=== PATIENT | male | born 1935 | race Caucasian/White ===

== ENCOUNTER 2017-09-20 23:30 | Observation (INO) ==
[2017-09-21] MEDS ORDERED: Acetaminophen 325 MG TABLET PO PRN (05:14)
[2017-09-21] MEDS ORDERED: Naloxone 0.4 MG/ML INJ IVP PRN (05:14)
[2017-09-21] MEDS ORDERED: 0.9 % Sodium Chloride 1,000 ML IVC SCH (05:15)
[2017-09-21] MEDS ORDERED: Albuterol 2.5 MG/3 ML NEBULIZER IH PRN (05:21)
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
[2017-09-21 05:24] LABS: Hemoglobin 12.6 g/dL (12.9-16.9); Mean Corpuscular HGB Conc 33.2 g/dL (31.6-35.5); Mean Corpuscular Hemoglobin 29.4 pg (28.0-33.3); Mean Corpuscular Volume 88.8 fL (83.0-100.0); Mean Platelet Volume 10.1 fL (9.4-12.4); Platelet Count 171 K/mcL (140-400); Red Blood Count 4.28 M/mcL (4.19-5.50); Red Cell Distribution Width 14.5 % (11.5-14.5); Segmented Neutrophils % 60.2 %
[2017-09-21 05:25] LABS: Basophils # 0.1 K/mcL (0.0-0.2); Basophils % 0.8 %; Eosinophils # 0.4 K/mcL (0.0-0.6); Eosinophils % 5.4 %; Immature Granulocytes % 0.5 % (0-4); Lymphocytes # 1.3 K/mcL (0.6-4.6); Lymphocytes % 20.1 %; Monocytes # 0.8 K/mcL (0.0-1.3); Neutrophils # 3.9 K/mcL (1.6-8.9)
[2017-09-21 05:39] LABS: BUN/Creatinine Ratio 16 (6-26); Blood Urea Nitrogen 16 mg/dL (8-23); Calcium 8.9 mg/dL (8.6-10.3); Carbon Dioxide 22 mEq/L (23-29); Chloride 111 mEq/L (98-107); Glucose 87 mg/dL (70-105); Osmolality,Calculated 291 (280-300); Potassium 3.6 mEq/L (3.5-5.1); Sodium 140 mEq/L (136-145); eGFR For Non-African Americans > 60 (> 60)
[2017-09-21] MEDS: *HR* Enoxaparin 40 MG/0.4 ML SYRINGE SQ SCH (06:36)
[2017-09-21] MEDS: amLODIPine 5 MG TABLET PO SCH (10:10)
[2017-09-21] MEDS: Budesonide/Formoterol 160/4.5 MDI IH SCH ×2 (11:33→20:25)
--- NOTE | 2017-09-21 13:32 | Internal Med Progress Note ---
Hospitalist Progress Note - Encounter Date of Encounter: 09/21/17 Time of Encounter: 13:32 - Subjective Interval History: Seen and evaluated at the bedside with his spouse He is being observed for near-syncope with symptomatic bradycardia, hypotension and ADIEL The patient was on atenolol as home med, this has been held Awaiting repeat EKG, and TTE He denies any new complains ADIEL is improving - Exam Vitals: Temp Pulse Resp BP Pulse Ox 97.6 F 66 18 153/91 96 09/21/17 11:27 09/21/17 11:27 09/21/17 11:36 09/21/17 11:27 09/21/17 11:36 Exam: VSS Gen: not in any form of distress Neuro: No focal deficits HEENT: Moist oral mucosa, anicteric, not pale, no cyanosis Chest: CTAB Heart: S1, S2 only, no m/g/r, no JVD Abdomen: Soft, not tender, no palpably enlarged organs Extremities: No edema Skin: No rash - Assessment and Plan (1) Symptomatic bradycardia Current Visit: Yes Status: Acute Assessment and Plan: Resolved HR now WNL Discontinued atenolol Continue tele Await ECHO report Cardiology consulted (2) Hypotension Current Visit: Yes Status: Resolved Assessment and Plan: Resolved Possibly due to bradycardia Continue IVF for ADIEL (3) Acute kidney injury Current Visit: Yes Status: Acute Assessment and Plan: Improving Likely due to hypotension and bradycardia Continue to monitor Avoid nephrotoxins (4) HTN (hypertension) Current Visit: Yes Status: Chronic Assessment and Plan: Start on Norvasc 5mg po daily for Hypertension Discontinue atenolol (5) HLD (hyperlipidemia) Current Visit: Yes Status: Chronic Assessment and Plan: Continue home medications (6) History of CVA (cerebrovascular accident) Current Visit: Yes Status: Chronic Assessment and Plan: Continue home medications (7) COPD (chronic obstructive pulmonary disease) Current Visit: Yes Status: Chronic Assessment and Plan: Continue albuterol q4h prn (8) GERD (gastroesophageal reflux disease) Current Visit: Yes Status: Chronic Assessment and Plan: Continue home medications (9) DVT prophylaxis Current Visit: Yes Status: Acute Assessment and Plan: Sq heparin - Time Spent with Patient Total time spent is greater than 50% in coordination of care (as documented) at patient's floor/unit and/or counseling patient: Plan of Care Discussed with: patient Internal Medicine: Result - Labs CBC & Chem 7: 09/21/17 04:43 09/21/17 04:43 Labs: Short CBC 09/21/17 Range/Units 04:43 WBC 6.5 (4.3-11.1) K/mcL Hgb 12.6 L (12.9-16.9) g/dL Hct 38.0 (37.5-50.1) % Plt Count 171 (140-400) K/mcL Neutrophils # 3.9 (1.6-8.9) K/mcL BMP 09/21/17 04:43 Sodium 140 Potassium 3.6 Chloride 111 H Carbon Dioxide 22 L BUN 16 Creatinine 0.97 Glucose 87 Calcium 8.9 Consult Discharge Plan - Plan Referrals: Markell Daniel MD [Primary Care Provider] - (2) Hypotension Qualifiers: Hypotension type: unspecified hypotension type Qualified Code(s): I95.9 - Hypotension, unspecified (4) HTN (hypertension) Qualifiers: Hypertension type: essential hypertension Qualified Code(s): I10 - Essential (primary) hypertension (5) HLD (hyperlipidemia) Qualifiers: Hyperlipidemia type: mixed hyperlipidemia Qualified Code(s): E78.2 - Mixed hyperlipidemia (7) COPD (chronic obstructive pulmonary disease) Qualifiers: COPD type: unspecified COPD Qualified Code(s): J44.9 - Chronic obstructive pulmonary disease, unspecified (8) GERD (gastroesophageal reflux disease) Qualifiers: Esophagitis presence: without esophagitis Qualified Code(s): K21.9 - Gastro- esophageal reflux disease without esophagitis
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
[2017-09-22] MEDS: *HR* Enoxaparin 40 MG/0.4 ML SYRINGE SQ SCH (06:13)
[2017-09-22] MEDS: Budesonide/Formoterol 160/4.5 MDI IH SCH (07:40)
[2017-09-22] MEDS ORDERED: Aspirin Enteric Coated 81 MG Tablet PO SCH (09:00)
[2017-09-22] MEDS ORDERED: Multivit/Ca/Min/Fe/FA 1 TAB TABLET PO SCH (09:00)
[2017-09-22] MEDS ORDERED: Folic Acid 1 MG TABLET PO SCH (09:00)
[2017-09-22] MEDS: amLODIPine 5 MG TABLET PO SCH (09:35)
--- NOTE | 2017-09-22 10:34 | Discharge Summary ---
- NOTES TO OUTPATIENT PROVIDER Notes to Outpatient Provider: Patient admitted with symptomatic bradycardia and hypotension with ADIEL. Atenolol has been discontinued and patient started on Norvasc for HTN. He is discharged with Holter for 48 hrs, follow up with PCP Orders not resulted at time of discharge: Pending orders 09/21/17 05:24 EKG [ECG 12 lead ECG] [ECG] Routine 09/21/17 14:18 TSH [Thyroid Stimulating Hormone] Routine 09/21/17 17:24 ECG 48 holter monitor setup [ECG] Routine 09/22/17 09:55 BMP [Basic Metabolic Panel] Stat Thyroid Stimulating Hormone Stat Date of Encounter: 09/22/17 Time of Encounter: 10:32 - Discharge Diagnosis (1) Symptomatic bradycardia Priority: Primary Status: Resolved (2) Hypotension Priority: Primary Status: Resolved Qualifiers: Hypotension type: unspecified hypotension type Qualified Code(s): I95.9 - Hypotension, unspecified (3) Acute kidney injury Priority: Primary Status: Resolved (4) HTN (hypertension) Priority: Secondary Status: Chronic Qualifiers: Hypertension type: essential hypertension Qualified Code(s): I10 - Essential (primary) hypertension (5) HLD (hyperlipidemia) Priority: Secondary Status: Chronic Qualifiers: Hyperlipidemia type: mixed hyperlipidemia Qualified Code(s): E78.2 - Mixed hyperlipidemia (6) History of CVA (cerebrovascular accident) Priority: Secondary Status: Chronic (7) COPD (chronic obstructive pulmonary disease) Priority: Secondary Status: Chronic Qualifiers: COPD type: unspecified COPD Qualified Code(s): J44.9 - Chronic obstructive pulmonary disease, unspecified (8) GERD (gastroesophageal reflux disease) Priority: Secondary Status: Chronic Qualifiers: Esophagitis presence: without esophagitis Qualified Code(s): K21.9 - Gastro -esophageal reflux disease without esophagitis (9) DVT prophylaxis Priority: Primary Status: Resolved Hospital course: Mr. Rueda is a 81 year old male with hx of CVA, HTN, GERD who presented to outside facility with dizziness and near-syncope and was found to be bradycardic , hypotensive and with ADIEL He is on atenolol at home for HTN His symptoms resolved and signs and vitals imprved with IVF hydration and discontinuation of atenolol ECHO was unremarkable. EF is preserved TSH and Chem, as well as CBC unremarkable Cardiology was consulted for recommendation and placement of Holter, agreed with plan He is clinically and hemodynamically stable for discharge home with family Patient and family educated at the bedside with plan for care today, verbalized understanding Discharge discussed with: patient, family, nurse, case management - Time Spent with Patient Total time spent providing and/or coordinating discharge services: Greater than 30 minutes - Discharge Medications Prescriptions: amLODIPine [Norvasc] 5 mg PO DAILY #30 tablet Home Medications: Albuterol Sulfate [Albuterol Inhaler] 2 puff IH Q4HR 09/11/15 [History] Budesonide/Formoterol 160/4.5 [Symbicort 160/4.5] 1 puff IN BID 09/11/15 [ History] Multivit with Calcium,Iron,Min [Essential Daily] 1 each PO DAILY 09/11/15 [ History] Omeprazole [PriLOSEC] 20 mg PO DAILY 09/11/15 [History] Atorvastatin Calcium [Lipitor] 80 mg PO HS 07/28/17 [History] Folic Acid 1 mg PO DAILY 07/28/17 [History] Alendronate Sodium [Fosamax] 70 mg PO QWEEK 09/21/17 [History] Aspirin [Lo-Dose Aspirin EC] 81 mg PO DAILY 09/21/17 [History] amLODIPine [Norvasc] 5 mg PO DAILY #30 tablet 09/22/17 [Rx] Allergies/Adverse Reactions: 3 Allergy/AdvReac Type Severity Reaction Status Date / Time cetirizine [From Zyrtec] Allergy See Verified 07/26/17 10:33 Comments Date of admission: 09/21/17 01:20 Primary care physician: Markell Daniel MD Consults: 09/21/17 04:10 Consult for Pharmacy Education [CONS] Stat Reason for Consult: Please verify home medications. Notify MD when this is completed. Thanks. Call Completed: No 09/21/17 13:31 Consult to Cardiology [CONS] Routine Comment: Consulting Provider: Cardiology Marilee Reason for Consult: Symptomatic bradycardia, ADIEL, for possible Holter on discharge Call Completed: Yes Discharging clinician: Jeferson Soares Anticipated date of discharge: 09/22/17 - Constitutional Vitals: Temp Pulse Resp BP Pulse Ox 97.5 F L 80 16 156/96 95 09/22/17 08:25 09/22/17 08:25 08/01/18 08:25 09/22/17 08:25 09/22/17 08:25 General appearance: Present: cooperative, A&O X 3, pleasant, no acute distress, answers questions appropriately - Head Head exam: Present: atraumatic, normocephalic - Eye Eye exam: Present: PERRL, conjuntiva pink, sclera anicteric Pupils: Present: PERRL - Neck Neck exam general surgery: Present: supple, trachea midline. Absent: lymphadenopathy - Respiratory Respiratory exam: Present: CTAB. Absent: accessory muscle use, rales, rhonchi, wheezes - Cardiovascular Cardiovascular exam: Present: RRR, +S1, +S2. Absent: diastolic murmur, gallop, rubs, systolic murmur - GI/Abdominal GI/Abdominal exam: Present: normal bowel sounds, soft, no peritoneal signs. Absent: distended, tenderness - Extremities Exam Extremities exam: Present: warm, radial pulses palpable and symmetrical. Absent : calf tenderness, cyanotic, pedal edema - Neurological Exam Neurological exam: Present: CN II-XII intact, oriented X3, no focal deficits. Absent: pronater drift, facial droop, speech deficit - Skin Skin exam: Present: dry, intact - Patient Status Disposition: Home, Self-Care Condition: Good Functional capacity at discharge: independent ambulation Overall status at discharge: patient is back to baseline - Discharge Instructions Follow Up With: Markell Daniel MD [Primary Care Provider] - 09/27/17 10:30 am (Please follow up a schedule...) - Diet and Activity Activity: resume usual activities as tolerated Diet: low salt diet
--- NOTE | 2017-09-22 10:37 | Cardiology Progress Note ---
Date of Encounter: 09/22/17 Time of Encounter: 10:34 Assessment and Plan (1) Symptomatic bradycardia Current Visit: Yes Status: Resolved CBC, BMP, CXR, troponin all within normal limits. Patient has remained asymptomatic with vital signs within normal limits. Echo performed 09/21/17 showing EF of 60% with mild MR, mild TR, basal septal hypertrophy and mild LVH Overnight telemetry showed an average heart rate of 80 bpm with few PVCs and PACs, two second pauses were noted. Recommend discontinuation of the atenolol with outpatient PCP followup. Continue Norvas Have ordered 48 holter monitor for home. Cardiology has signed off at this time, please call if you have any further questions. Discussion w patient/family: The assessment and plan as outlined above was discussed with the patient and/or family members who expressed understanding and agreement. All questions were answered. Thank you for involving us in the care of your patient. Please call with any questions. Subjective Principal diagnosis: symptomatic bradycardia Interval history: Patient currently asymptomatic this morning. Patient denies lightheaded, dizziness, chest pain or shortness of breath. Patient was on telemetry overnight and denies symptoms or events. Objective Vital Signs, Last 4 Hours Temp Pulse Resp BP Pulse Ox 09/22/17 08:25 97.5 F L 80 16 156/96 95 09/22/17 07:42 16 96 General: No Apparent Distress HEENT: Atraumatic, Normocephaly Neck: No JVD, Normal carotid pulses Cardiac: Reg Rate and Rhythm, Normal S1 and S2, No Murmur Lungs: Normal Breath Sounds, No Wheeze, Rales, Rhonchi Neuro: Alert and responsive Abdomen: Soft, Non-Tender Skin: No rashes noted on visualized skin Musculoskeletal: No Chest Wall Tenderness Extremities: No Edema, Normal Pulses Results 09/21/17 04:43 09/21/17 04:43 - Imaging and Cardiology Chest Xray: report reviewed, image reviewed Echo: report reviewed, image reviewed - EKG Interpretation EKG results cardiology: personally reviewed Consult Discharge Plan - Plan Referrals: Markell Daniel MD [Primary Care Provider] - Prescriptions: amLODIPine [Norvasc] 5 mg PO DAILY #30 tablet
[2017-09-22 10:49] LABS: Thyroid Stimulating Hormone 3.476 mcIU/mL (0.340-5.600)
[2017-09-22 11:48] LABS: BUN/Creatinine Ratio 12 (6-26); Blood Urea Nitrogen 11 mg/dL (8-23); Calcium 10.3 mg/dL (8.6-10.3); Carbon Dioxide 26 mEq/L (23-29); Chloride 106 mEq/L (98-107); Glucose 125 mg/dL (70-105); Osmolality,Calculated 291 (280-300); Potassium 3.7 mEq/L (3.5-5.1); Sodium 140 mEq/L (136-145); eGFR For Non-African Americans > 60 (> 60)
[2017-09-22 12:00] VITALS: BP 158/93
--- NOTE | 2017-09-22 20:22 | Electrocardiograph Report ---
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
== END 2017-09-22 13:38 | disposition home or self-care (01) ==
LOC: 2ANU → SUATTDRO 09-21 01:20
PROVIDERS: ADMIT Family Medicine; ATTEND Internal Medicine

== ENCOUNTER 2018-02-17 18:46 | Observation (INO) ==
--- NOTE | 2018-02-17 23:00 | Internal Med History&Physical ---
Date of Encounter: 02/17/18 Time of Encounter: 22:59 Internal Medicine - H&P: HPI History of present illness: Mr. Rueda is a 82 year old male patient presents to the emergency department with upper chest pain that radiated midsternally, aggravated by exertion and got relieved with nitroglycerin paste in the ER The patient also reported that he developed blurred vision associated with lightheadedness, however he denied loss of consciousness, palpitations, numbness, tingling or weakness. The patient status post pacemaker placement in November 2017, no history of coronary artery disease or cardiac catheterization. The case was discussed with cardiology recommended admission for further evaluation and management. Past Med Surg Social Fam HX - Past Medical History Medical history: cancer, COPD, CVA, GERD, hyperlipidemia, hypertension, other Additional medical history: bladder ca. HYPERPARATHYROID Psychiatric history: no psych history - Past Surgical History Surgical History: other, pacemaker Additional surgical history: back sx 2006, bladder Sx. TURP. CARPAL TUNNEL - Social History Smoking Status: Former smoker Smokeless Tobacco Status: No Alcohol use: none Drug use: none - Family History Mother Living Status: Internal Medicine - H&P: Meds Budesonide/Formoterol 160/4.5 [Symbicort 160/4.5] 1 puff IN DAILY 09/11/15 [History] Omeprazole [PriLOSEC] 20 mg PO HS 09/11/15 [History] Atorvastatin Calcium [Lipitor] 80 mg PO HS 07/28/17 [History] Folic Acid 1 mg PO DAILY 07/28/17 [History] Alendronate Sodium [Fosamax] 70 mg PO ASHRAF 09/21/17 [History] Aspirin [Lo-Dose Aspirin EC] 81 mg PO DAILY 09/21/17 [History] amLODIPine [Norvasc] 5 mg PO DAILY #30 tablet 09/22/17 [Rx] Fluticasone Propionate [Flonase Allergy Relief] 1 spray NS DAILY 11/22/17 [History] Vitamin E 1,000 unit PO HS 11/22/17 [History] Naproxen [Naprosyn] 500 mg PO BID PRN 02/17/18 [History] Allergy/AdvReac Type Severity Reaction Status Date / Time cetirizine [From Zyrtec] Allergy See Verified 02/17/18 22:00 Comments All Systems PM: A 10-system review of systems was performed and is negative for pertinent findings except as documented above in the HPI. - Constitutional Constitutional: no chills, no fever(s), no night sweats - Cardiovascular Cardiovascular ROS IM: chest pain, no diaphoresis, no dyspnea, no lightheadedness, no palpitations, no syncope - Respiratory Respiratory: dyspnea, no cough, no wheezing, no excessive phlegm production - Gastrointestinal Gastrointestinal: no abdominal pain, no diarrhea, no hematemesis, no hematochezia, no melena, no nausea, no vomiting - Neurological Neurological ROS: dizziness, no confusion, no convulsions, no focal weakness, no numbness, no tingling, no tremor(s) - Constitutional Vitals: Temp Pulse Resp BP Pulse Ox 98.8 F 106 18 109/66 93 02/17/18 21:16 02/17/18 21:16 02/17/18 21:16 02/17/18 21:16 02/17/18 21:16 - Assessment and plan (1) Chest pain Current Visit: No Status: Acute Assessment and plan: ASSESSMENT: - Chest pain DD *CAD *Muskuloskeletal CP - myofascial strain, costochondritis *GERD *Esophageal spasm *Cocaine induced *Pericarditis - unlikely *Pneumonia - no infiltrate on CXR PLAN: - cardiac enzymes x 2 q 8 hr - EKG now and in AM - ASA - Metoprolol 12.5 mg PO BID, hold for HR lower than 55 bpm - O2 by NC to keep SpO2 greater than 92% - UA - Urine toxic screen - CBCD, BMP in AM - Fasting lipids - Morphine 2 mg IV q 2-4 hr PRN chest pain - Tylenol 650 mg PO q 4-6 hr PRN headache - Home meds (check list) - Heparin 5000 U SQ BID - 2D Echo - Cardiology consult (2) HTN (hypertension) Current Visit: No Status: Chronic Assessment and plan: We will continue home medication Qualifiers: (3) HLD (hyperlipidemia) Current Visit: No Status: Chronic Qualifiers: (4) COPD (chronic obstructive pulmonary disease) Current Visit: No Status: Chronic Assessment and plan: We will continue home medication and start the patient in DuoNeb when necessary Qualifiers: (5) GERD (gastroesophageal reflux disease) Current Visit: No Status: Chronic Assessment and plan: We will continue home medication Qualifiers: (6) S/P placement of cardiac pacemaker Current Visit: No Status: Acute Assessment and plan: Cardiology was consulted to rule out pacemaker malfunction (7) Pre-syncope Current Visit: Yes Status: Acute Assessment and plan: There is a concern of pacemaker malfunction, and possible arrhythmia, etiology was consulted, we will obtain 2-D echo. - Time Spent With Patient Total time spent is greater than 50% in coordination of care (as documented) at patient's floor/unit and/or counseling patient:
[2018-02-18] MEDS ORDERED: Acetaminophen 325 MG TABLET PO PRN (00:07)
[2018-02-18] MEDS ORDERED: Ondansetron 4 MG/2 ML VIAL IVP PRN (00:07)
[2018-02-18] MEDS ORDERED: Naloxone 0.4 MG/ML INJ IVP PRN (00:07)
[2018-02-18 00:59] LABS: Hematocrit 41.1 % (37.5-50.1); Hemoglobin 13.6 g/dL (12.9-16.9); Mean Corpuscular HGB Conc 33.1 g/dL (31.6-35.5); Mean Corpuscular Volume 87.6 fL (83.0-100.0); Mean Platelet Volume 9.8 fL (9.4-12.4); Platelet Count 192 K/mcL (140-400); Red Blood Count 4.69 M/mcL (4.19-5.50); Red Cell Distribution Width 14.3 % (11.5-14.5)
[2018-02-18 01:07] LABS: INR 1.1; Prothrombin Time 12.2 Seconds (9.4-12.1)
[2018-02-18 01:12] LABS: Alanine Aminotransferase 14 Units/L (7-52); Albumin 3.6 g/dL (3.5-5.7); Albumin/Globulin Ratio 1.6 (1.1-2.2); Alkaline Phosphatase 40 Units/L (34-104); Aspartate Amino Transferase 13 Units/L (13-39); BUN/Creatinine Ratio 19 (6-26); Bilirubin,Total 1.3 mg/dL (0.3-1.0); Blood Urea Nitrogen 21 mg/dL (8-23); Calcium 9.8 mg/dL (8.6-10.3); Carbon Dioxide 26 mEq/L (23-29); Chloride 103 mEq/L (98-107); Chol/HDL Ratio 2.9 (0-4.9); Cholesterol 137 mg/dL (< 200); Globulin 2.3 g/dL (2.4-3.5); Glucose 159 mg/dL (70-105); HDL Cholesterol 47 mg/dL (40-59); LDL Cholesterol,Calculated 82 mg/dL (0-99); Magnesium 1.8 mg/dL (1.6-2.6); Osmolality,Calculated 286 (280-300); Phosphorous 3.6 mg/dL (2.7-4.5); Potassium 4.2 mEq/L (3.5-5.1); Sodium 135 mEq/L (136-145); Total Protein 5.9 g/dL (6.4-8.9); Triglycerides 41 mg/dL (< 150); eGFR For Non-African Americans > 60 (> 60)
[2018-02-18] MEDS ORDERED: Ipratropium/Albuterol Neb 3 ML IH PRN (11:40)
--- NOTE | 2018-02-18 11:44 | Internal Med Progress Note ---
Hospitalist Progress Note - Encounter Date of Encounter: 02/18/18 Time of Encounter: 09:15 - Subjective Interval History: Patient was seen and assessed at bedside at 9:15 AM. He is alert, oriented, appropriate. He reports blurred vision with lightheadedness for several days. He says blurred vision only happens when he is lightheaded. The chest pain began yesterday and he describes it as Judy between dull and sharp, constant, increases with deep inspiration. It is not reproducible with palpation or movement. He denies fever, cough, URI symptoms, nausea, vomiting, diarrhea or abdominal pain. - Exam Vitals: Temp Pulse Resp BP Pulse Ox 98.0 F 96 18 122/66 91 02/18/18 11:29 02/18/18 11:29 02/18/18 11:29 02/18/18 11:29 02/18/18 11:29 General: Pt resting quietly on bed, no distress. Skin: pwd, no rashes, lesions, redness Neurological: Pt is alert and awake, oriented x 3, Speech is clear, PERRLA, EOMI, no nystagmus, no pronator drift. strength equal x 4 extremities HEENT: mucous mumbranes moist, no conjuctival pallor Neck: supple, no tracheal deviation, no lymphadenopathy, tenderness, no thyromegaly Heart: S1S2 heard without gallops, clicks, murmurs, no bradycardia or tachycardia, pt has no peripheral edema, pedal and radial pulses palpable bilaterally. Lungs: clear throughout without wheezing, rales, or ronchi, respirations are unlabored Abdomen: soft and non tender with bowel sound present, no hepatomegaly. Psych: Normal affect with good eye contact Exam: General: Pt resting quietly on bed, no distress. Skin: pwd, no rashes, lesions, redness Neurological: Pt is alert and awake, oriented x 3, Speech is clear, PERRLA, EOMI, no nystagmus, no pronator drift. strength equal x 4 extremities HEENT: mucous mumbranes moist, no conjuctival pallor Neck: supple, no tracheal deviation, no lymphadenopathy, tenderness, no thy romegaly Heart: S1S2 heard without gallops, clicks, murmurs, no bradycardia or tachycardia, pt has no peripheral edema, pedal and radial pulses palpable bilaterally. Lungs: clear throughout without wheezing, rales, or ronchi, respirations are unlabored Abdomen: soft and non tender with bowel sound present, no hepatomegaly. Psych: Normal affect with good eye contact - Assessment and Plan (1) HTN (hypertension) Current Visit: Yes Status: Chronic Assessment and Plan: Chronic. Well controlled. Continue home medications. (2) HLD (hyperlipidemia) Current Visit: Yes Status: Chronic Assessment and Plan: Chronic. Continue home medications. (3) COPD (chronic obstructive pulmonary disease) Current Visit: Yes Status: Chronic Assessment and Plan: Chronic, no acute exacerbation. Continue home medications, Duonebs prn, 02 as needed to maintain sats > 92%. (4) GERD (gastroesophageal reflux disease) Current Visit: Yes Status: Chronic Assessment and Plan: Chronic. Continue home dose of Prilosec. (5) S/P placement of cardiac pacemaker Current Visit: Yes Status: Acute Assessment and Plan: Pacemaker implanted in November 2017 for symptomatic bradycardia. Cardiology consulted to rule out malfunction causing pt's upper chest pain. (6) Chest pain Current Visit: Yes Status: Acute Assessment and Plan: ASSESSMENT: - Chest pain, upper chest. Unable to describe quality. States it is constant and increases with deep inspiration, not with movement or palpation. He denies nausea, vomiting, diaphoresis, shortness of breath, or radiation. Denies palpitations. He complains of dizziness over the last week or so with blurred vision. DD *CAD *Muskuloskeletal CP - myofascial strain, costochondritis *GERD *Esophageal spasm *Pericarditis - unlikely *Pneumonia - more likely based on 01/18 chest xray *Pacer malfunction. PLAN: - Troponins negative x 2. - ASA 81mg daily - Metoprolol 12.5 mg PO BID, hold for HR lower than 55 bpm - O2 by NC to keep SpO2 greater than 92% - UA - Urine toxic screen - CBCD, BMP in AM - Fasting lipids - Morphine 2 mg IV q 2-4 hr PRN chest pain - Tylenol 650 mg PO q 4-6 hr PRN headache - Home meds (check list) - Heparin 5000 U SQ BID - 2D Echo - Cardiology consult for pacer malfunction - Rocephin 1 gram IV for pneumonia (7) Pre-syncope Current Visit: Yes Status: Acute Assessment and Plan: There is a concern of pacemaker malfunction, and possible arrhythmia, cardiology was consulted, we will obtain 2-D echo. Plan as above. (8) Pneumonia Current Visit: Yes Status: Acute Assessment and Plan: Pt with chest pain, lightheadedness, near syncope for the last few days. He has mild leukocytosis and bibasilar airspace disease on CXR 01/18. His chest pain is in his upper chest, is constant discomfort with worsening with deep inspiration, likely cause of chest pain. He has been hospitalized in the last 90 days, November, for a pacemaker, so will treat for HCAP. 02 as needed to maintain sats >92% Zosyn 3.375g q8h Vancomycin 1 gram daily Duonebs as needed Strep pneumo and legionella ordered and pending. - Time Spent with Patient Total time spent is greater than 50% in coordination of care (as documented) at patient's floor/unit and/or counseling patient: less than 15 minutes Plan of Care Discussed with: patient Internal Medicine: Result - Labs CBC & Chem 7: 02/18/18 00:39 02/18/18 00:39 Labs: Short CBC 02/18/18 Range/Units 00:39 WBC 12.7 H (4.3-11.1) K/mcL Hgb 13.6 (12.9-16.9) g/dL Hct 41.1 (37.5-50.1) % Plt Count 192 (140-400) K/mcL BMP 02/18/18 00:39 Sodium 135 L Potassium 4.2 Chloride 103 Carbon Dioxide 26 BUN 21 Creatinine 1.08 Glucose 159 H Calcium 9.8 Cardiac Enzymes 02/18/18 02/18/18 Range/Units 00:39 06:02 Troponin I < 0.03 < 0.03 (< 0.04) ng/mL Liver Function 02/18/18 Range/Units 00:39 Total Bilirubin 1.3 H (0.3-1.0) mg/dL AST 13 (13-39) Units/L ALT 14 (7-52) Units/L Alkaline Phosphatase 40 (34-104) Units/L Albumin 3.6 (3.5-5.7) g/dL - ABG Interpretation ABG results: PT/INR, D-dimer PT 12.2 Seconds (9.4-12.1) H 02/18/18 00:39 Consult Discharge Plan - Plan Referrals: Markell Daniel MD [Primary Care Provider] - 02/28/18 10:30 am (1) HTN (hypertension) Qualifiers: (2) HLD (hyperlipidemia) Qualifiers: (3) COPD (chronic obstructive pulmonary disease) Qualifiers: (4) GERD (gastroesophageal reflux disease) Qualifiers: (6) Chest pain Qualifiers: Chest pain type: chest pain on breathing Qualified Code(s): R07.1 - Chest pain on breathing; R07.81 - Pleurodynia (8) Pneumonia Qualifiers: Pneumonia type: due to unspecified organism Laterality: bilateral Lung location: lower lobe of lung Qualified Code(s): J18.1 - Lobar pneumonia, unspecified organism
[2018-02-18] MEDS ORDERED: Azithromycin 500 MG in D5% in Water 250 ML IVPB SCH (12:00)
[2018-02-18] MEDS: *HR* Heparin 5,000 UNIT/ML VIAL SQ SCH ×2 (12:50→20:17)
[2018-02-18] MEDS: *HR* HYDROcodone/Acet 5/325 mg TABLET PO PRN ×2 (13:05→18:48)
[2018-02-18 13:39] LABS: Bilirubin,Urine Negative (Negative); Blood,Urine Negative (Negative); Clarity,Urine Clear (Clear); Color,Urine Yellow (Yellow); Glucose,Urine (UA) Normal (Normal); Ketones,Urine Negative (Negative); Leukocyte Esterase,Urine Small (Negative); Nitrite,Urine Negative (Negative); PH,Urine 5.5 pH Units (5.0-8.0); Protein,Urine Negative (Neg-Trace); Specific Gravity,Urine 1.023 (1.010-1.025); Urobilinogen,Urine Normal (Normal)
[2018-02-18 13:42] LABS: Bacteria,Urine None Seen per hpf (None-Few); Hyaline Casts,Urine None Seen per lpf (None-Few); RBC,Urine 0-3 per hpf (0-3); Squamous Epithelial Cell,Urine Moderate per lpf (None-Few); WBC,Urine 0-3 per hpf (0-3)
[2018-02-18] MEDS: Piperacillin/Tazobactam 3.375 GM in 0.9 % Sodium Chloride Mini Bag 100 ML IVPB SCH ×2 (16:33→23:56)
[2018-02-18] MEDS ORDERED: cefTRIAXone 1,000 MG in 0.9 % Sodium Chloride Mini Bag 100 ML IVPB SCH (18:00)
[2018-02-19 03:50] LABS: Basophils % 0.4 %; Eosinophils # 0.2 K/mcL (0.0-0.6); Eosinophils % 1.8 %; Hematocrit 36.6 % (37.5-50.1); Hemoglobin 12.3 g/dL (12.9-16.9); Immature Granulocytes % 0.3 % (0-4); Lymphocytes % 9.9 %; Mean Corpuscular HGB Conc 33.6 g/dL (31.6-35.5); Mean Corpuscular Hemoglobin 29.1 pg (28.0-33.3); Mean Corpuscular Volume 86.7 fL (83.0-100.0); Mean Platelet Volume 10.1 fL (9.4-12.4); Monocytes # 1.4 K/mcL (0.0-1.3); Monocytes % 14.4 %; Neutrophils # 7.2 K/mcL (1.6-8.9); Platelet Count 177 K/mcL (140-400); Red Blood Count 4.22 M/mcL (4.19-5.50); Red Cell Distribution Width 14.5 % (11.5-14.5); Segmented Neutrophils % 73.2 %
[2018-02-19 04:04] LABS: BUN/Creatinine Ratio 18 (6-26); Blood Urea Nitrogen 22 mg/dL (8-23); Calcium 9.7 mg/dL (8.6-10.3); Carbon Dioxide 26 mEq/L (23-29); Chloride 104 mEq/L (98-107); Chol/HDL Ratio 2.5 (0-4.9); Cholesterol 124 mg/dL (< 200); Glucose 119 mg/dL (70-105); HDL Cholesterol 50 mg/dL (40-59); LDL Cholesterol,Calculated 62 mg/dL (0-99); Osmolality,Calculated 284 (280-300); Potassium 3.8 mEq/L (3.5-5.1); Sodium 135 mEq/L (136-145); Triglycerides 62 mg/dL (< 150); eGFR For Non-African Americans 58 (> 60)
[2018-02-19] MEDS: *HR* Heparin 5,000 UNIT/ML VIAL SQ SCH (05:25)
[2018-02-19] MEDS: Piperacillin/Tazobactam 3.375 GM in 0.9 % Sodium Chloride Mini Bag 100 ML IVPB SCH ×2 (08:46→20:03)
[2018-02-19] MEDS: *HR* HYDROcodone/Acet 5/325 mg TABLET PO PRN ×2 (08:57→20:32)
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
[2018-02-19] MEDS ORDERED: Isovue-370 500 ML INFUS..BTL IV ONE (12:00)
--- NOTE | 2018-02-19 13:55 | Event Note ---
Date of Encounter: 02/19/18 Time of Encounter: 13:49 - Cardiology Event Note -Patient admitted with pneumonia. Reports some chest tightness with deep inspiration, pleuritic chest pain. TTE with LVEF preserved, no wall motion abnormalities. Troponins negative x3. NO further ischemic work op warranted. -Regarding dizziness, reports has been ongoing for months, even prior to pacemaker placement. Can not attriubute to position change. If concern for carotid stenosis causing dizziness, recommend vascular surgery/neurology consult. -Regarding pacemaker, device check completed and on chart. Normal functioning pacemaker. Patient has had episodes of a.fib/flutter RVR. Recent diagnosis of a.fib/flutter. Do not suspect this correlates with his symptoms. Patient had device check 12/2017 in [facility] without arrythmia, however still reported dizziness. ALso 2 weeks in January without a.fib/flutter and patient still reported dizziness. -Regarding a.fib/flutter. Will start BB, lopressor 25mg BID. [id number] score 6 (age 4, HTN, DM, CVA 2), recommend retirement anticoagulation. Patient denies bleeding or blood loss. Will start eliquis 5mg BID. Eliquis assistance card given to patient. -Cardiology will sign off, patient has follow up scheduled with cardiology. -Discussed and reviewed with , patient, and at bedside.
[2018-02-19] MEDS: Aspirin Enteric Coated 81 MG Tablet PO SCH (14:34)
[2018-02-19] MEDS: amLODIPine 5 MG TABLET PO SCH (14:34)
--- NOTE | 2018-02-19 15:12 | Neurology - Consult Note ---
Date of Encounter: 02/19/18 Time of Encounter: 15:08 Assessment and Plan (1) Visual changes Current Visit: Yes Status: Acute At this juncture I am not absolutely certain that the visual changes were due to a central neurologic issue. He states that the episode lasted only about 30 seconds or so and then resolved spontaneously. He denied any associated headache or other neurologic symptoms. He denied loss of consciousness. I would like to obtain an MRI scan of the brain to rule out any evidence of subtle occipital lobe infarction. Otherwise I would feel it is not likely that the right internal carotid artery stenosis with caused only visual problems without symptoms of paresthesia or weakness associated. In regard I will obtain an MRI scan of the brain. He does have a pacemaker therefore we will have to have someone present to recalibrate the pacemaker. The meantime maintaining aspirin and anticoagulation. History of Present Illness HPI: The chart was reviewed, the patient was seen and examined independently. Patient is able to provide a good history. He is a very pleasant 82-year-old g entleman who appears younger than his stated age and is seen for neurologic evaluation secondary to acute dizziness with the visual abnormalities. His persistent in his description of what he states was a 50% loss of his vision. He denies monocular or bilateral monocular visual loss. He simply describes that things appeared to be dealing and his visual field. He stated that nothing appeared to be missing from the visual field. He denies any type of hemianopsia, denies diplopia or visual field abnormalities. He denied numbness or paresthesias, denies confusion, denied headache. Denied weakness. He states that he was hospitalized for similar complaints back in December of this year. Apparently he was thought to have possibly been due to cardiac etiologies and he does have a pacemaker. He has had a recent carotid Doppler study which reveals stenosis of the proximal right ICA at 60-79%. Echocardiogram was negative. CT scan of the brain was negative. He states that the entire episode only lasted 30 seconds up to a minute. Past Med Surg Social Fam HX - Past Medical History Medical history: cancer, COPD, CVA, GERD, hyperlipidemia, hypertension, other Additional medical history: bladder ca. HYPERPARATHYROID Psychiatric history: no psych history - Past Surgical History Surgical History: other, pacemaker Additional surgical history: back sx 2006, bladder Sx. TURP. CARPAL TUNNEL - Social History Smoking Status: Former smoker Smokeless Tobacco Status: No Alcohol use: none Drug use: none - Family History Mother Living Status: Medications and Allergies Budesonide/Formoterol 160/4.5 [Symbicort 160/4.5] 1 puff IN DAILY 09/11/15 [History] Omeprazole [PriLOSEC] 20 mg PO HS 09/11/15 [History] Atorvastatin Calcium [Lipitor] 80 mg PO HS 07/28/17 [History] Folic Acid 1 mg PO DAILY 07/28/17 [History] Alendronate Sodium [Fosamax] 70 mg PO ASHRAF 09/21/17 [History] Aspirin [Lo-Dose Aspirin EC] 81 mg PO DAILY 09/21/17 [History] amLODIPine [Norvasc] 5 mg PO DAILY #30 tablet 09/22/17 [Rx] Fluticasone Propionate [Flonase Allergy Relief] 1 spray NS DAILY 11/22/17 [History] Vitamin E 1,000 unit PO HS 11/22/17 [History] Naproxen [Naprosyn] 500 mg PO BID PRN 02/17/18 [History] Allergy/AdvReac Type Severity Reaction Status Date / Time cetirizine [From Zyrte] Allergy See Verified 02/17/18 22:00 Comments All Systems: The remainder of the systems were reviewed and are negative Review of Systems: The balance of the systems review is negative. Physical Examination - Vital Signs Vital Signs: Initial Vital Signs Temp Pulse Resp BP Pulse Ox 98.8 F 106 18 109/66 93 02/17/18 21:16 02/17/18 21:16 02/17/18 21:16 02/17/18 21:16 02/17/18 21:16 - Exam Exam: General Examination: *CONSTITUTIONAL: normal *GENERAL APPEARANCE OF PATIENT appears healthy and well groomed *EYES: pupils equal, round, reactive to light and accommodation, c onjunctiva clear without masses or ulcerations, fundi normal. *CARDIOVASCULAR no peripheral edema, distal temperature normal, dorsalis pedis pulses normal. Refer to vital signs Musculoskeletal: *GAIT AND STATION normal, with normal Romberg testing, no abnormalities such as broad base gait or spasticity *ASSESSMENT OF MUSCLE STRENGTH IN THE UPPER AND LOWER EXTREMITIES deltoid, bicep, tricep, pastry decorator strength, hip flexors ,anterior tibialis, dorsoflexion of the foot normal. *MUSCLE TONE IN THE UPPER AND LOWER EXTREMITIES normal. No abnormal movements, fasciculations or atrophy identified. Neurological: *ORIENTATION to time and place *RECURRENT AND REMOTE MEMORY intact *ATTENTION AND CONCENTRATION are normal *LANGUAGE FUNCTION no significant aphasia or dysarthia was noted. *FUND OF KNOWLEDGE aware of current events, past history, vocabulary *MENTAL attention span and concentration normal. *CN II optic fundi were normal, no papilledema noted. *CN III,IV, PERRLA extraocular eye movements were full, no nystagmus and no ptosis noted. *CN V shows normal sensation and jaw opens symmetrically. *CN VII shows normal facial movement symmetrically, upper and lower bilat erally. *CN VIII shows no significant hearing loss on examination in the office. *CN IX,,X palate elevated symmetrically and normal gag reflex was noted. *CN XI normal strength in the sternocleidomastoid muscles, symmetrical shoulder shrugging. *CN XII tongue protruded in the midline, with normal strength and movement. *SENSORY EXAMINATION pinprick sensation intact, and light touch(vibration sense). *REFLEXES: deep tendon reflexes were normal and symmetrical , grade 2/4 diffusely, no pathological reflexes were noted. *CEREBELLAR TESTING normal finger to nose, heel/knee/william, and tandem walk. *PAIN LEVEL -0 Results - Laboratory Findings CBC and BMP: 02/19/18 02:59 02/19/18 02:59 Abnormal lab findings: Abnormal lab results Hgb 12.3 g/dL (12.9-16.9) L 02/19/18 02:59 Hct 36.6 % (37.5-50.1) L 02/19/18 02:59 Monocytes # 1.4 K/mcL (0.0-1.3) H 02/19/18 02:59 PT 12.2 Seconds (9.4-12.1) H 02/18/18 00:39 Sodium 135 mEq/L (136-145) L 02/19/18 02:59 Est GFR (Non-Af Amer) 58 (> 60) L 02/19/18 02:59 Glucose 119 mg/dL (70-105) H 02/19/18 02:59 Total Bilirubin 1.3 mg/dL (0.3-1.0) H 12/28/18 00:39 Serum Total Protein 5.9 g/dL (6.4-8.9) L 02/18/18 00:39 Globulin 2.3 g/dL (2.4-3.5) L 02/18/18 00:39 Ur Leukocyte Esterase Small (Negative) H 02/18/18 11:50 Ur Squamous Epith Cells Moderate per lpf (None-Few) H 02/18/18 11:50 Ur Culture Indicated? YES (NO) A 02/18/18 11:50 Consult Discharge Plan - Plan Referrals: Markell Daniel MD [Primary Care Provider] - 02/28/18 10:30 am
[2018-02-19] MEDS: Apixaban 5 MG TABLET PO SCH (20:32)
[2018-02-20] MEDS: Piperacillin/Tazobactam 3.375 GM in 0.9 % Sodium Chloride Mini Bag 100 ML IVPB SCH ×2 (01:10→09:24)
[2018-02-20] MEDS: Aspirin Enteric Coated 81 MG Tablet PO SCH (09:23)
[2018-02-20] MEDS: amLODIPine 5 MG TABLET PO SCH (09:23)
[2018-02-20] MEDS: Apixaban 5 MG TABLET PO SCH ×2 (09:23→21:21)
[2018-02-20] MEDS: *HR* HYDROcodone/Acet 5/325 mg TABLET PO PRN ×2 (09:40→17:21)
[2018-02-20 12:16] LABS: eGFR For Non-African Americans > 60 (> 60)
--- NOTE | 2018-02-20 15:32 | Internal Med Progress Note ---
Hospitalist Progress Note - Encounter Date of Encounter: 02/20/18 Time of Encounter: 15:28 - Subjective Interval History: resting comfortably in chair at side of bed, no acute change in condition overnight. He is here for evaluation of dizziness and visual abnormalities as well as concerns for syncope. He denies any return of syncopal events, dizziness, or vision changes since admission. - Exam Vitals: Temp Pulse Resp BP Pulse Ox 98.0 F 75 18 113/72 92 02/20/18 11:46 02/20/18 11:46 02/20/18 11:46 02/20/18 11:46 02/20/18 11:46 Exam: PHYSICAL EXAMINATION: GENERAL: The patient is an elderly male, A&OX3, NAD HEENT: Head is normocephalic and atraumatic.EOMI without nystagmus, PERRLA NECK: Supple. No carotid bruits. No lymphadenopathy or thyromegaly. LUNGS: Clear to auscultation B/L AP and L. HEART: Regular rate and rhythm, S1, S2 without murmurs, rubs or gallops. ABDOMEN: Soft, nontender, and nondistended. Positive bowel sounds. EXTREMITIES: Without any cyanosis, clubbing, rash, lesions or edema. NEUROLOGIC: Cranial nerves II through XII are grossly intact. Non lateralizing and non focal SKIN: No ulceration or induration present. 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 Continue home medications (4) GERD (gastroesophageal reflux disease) Current Visit: Yes Status: Chronic Assessment and Plan: continue PPI (5) S/P placement of cardiac pacemaker Current Visit: Yes Status: Acute Assessment and Plan: Chronic, history of A. fib normal functioning pacemaker per device check (6) Chest pain Current Visit: Yes Status: Resolved Assessment and Plan: pleuritic appearing chest pain; occurs with respiration dx of PNA Denies any chest pain or dyspnea at this time cardio consulted; no rec for further ischemic w/u (7) Pre-syncope Current Visit: Yes Status: Acute Assessment and Plan: States 2 episodes of pre-syncope in a 2-month period He denies any LOC or H/A and denies any loss of visual cheney. 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 EKG is without ischemic changes. Plan: MRI tomorrow to evaluate for occipital lobe infarct cardiology does not feel ischemic w/u is warranted at this time consider tilt table test outpatient if symptoms persist orthostatic vital signs to assess for autonomic dysfunction (8) Pneumonia Current Visit: Yes Status: Acute Assessment and Plan: Acute Chest x-ray is positive for a small bibasilar infiltrate there was concern for HCAP with hospitalization within the last 90 days empiric broad spectrum antibiotic coverage started on admission Apply oxygen at 2 L per nasal cannula if needed 02/20--Afebrile, and resting comfortably on RA without respiratory distress. He is non toxic appearing and hemodynamically stable. de-escalate ABX to monotherapy with Levaquin. Patient reports that he has tolerated this in the past. Renally dose. Continue nebs, - Time Spent with Patient Total time spent is greater than 50% in coordination of care (as documented) at patient's floor/unit and/or counseling patient: less than 15 minutes Plan of Care Discussed with: patient Internal Medicine: Result - Labs CBC & Chem 7: 02/19/18 02:59 02/20/18 11:27 Labs: BMP 02/20/18 11:27 Creatinine 1.11 - ABG Interpretation ABG results: PT/INR, D-dimer PT 12.2 Seconds (9.4-12.1) H 02/18/18 00:39 Consult Discharge Plan - Plan Referrals: Markell Daniel MD [Primary Care Provider] - 02/28/18 10:30 am (1) HTN (hypertension) Qualifiers: Hypertension type: essential hypertension (2) HLD (hyperlipidemia) Qualifiers: (3) COPD (chronic obstructive pulmonary disease) Qualifiers: (4) GERD (gastroesophageal reflux disease) Qualifiers: (6) Chest pain Qualifiers: Chest pain type: chest pain on breathing Qualified Code(s): R07.1 - Chest pain on breathing; R07.81 - Pleurodynia (8) Pneumonia Qualifiers: Pneumonia type: due to unspecified organism Laterality: bilateral Lung location: lower lobe of lung Qualified Code(s): J18.1 - Lobar pneumonia, unspecified organism
[2018-02-21] MEDS ORDERED: levoFLOXacin 750 MG TABLET PO SCH (09:00)
--- NOTE | 2018-02-21 09:02 | Internal Med Progress Note ---
Hospitalist Progress Note - Encounter Date of Encounter: 02/21/18 Time of Encounter: 09:00 - Subjective Interval History: No acute condition overnight. Denies and return of visual impairment or near sycopal events. - Exam Vitals: Temp Pulse Resp BP Pulse Ox 98.7 F 82 16 121/80 92 02/21/18 07:28 02/21/18 07:28 02/21/18 07:28 02/21/18 07:28 02/21/18 07:28 Exam: PHYSICAL EXAMINATION: GENERAL: The patient is an elderly male, A&OX3, NAD HEENT: Head is normocephalic and atraumatic. EOMI without nystagmus, PERRLA NECK: Supple. No carotid bruits. No lymphadenopathy or thyromegaly. LUNGS: Clear to auscultation B/L AP and L. HEART: Regular rate and rhythm, S1, S2 without murmurs, rubs or gallops. ABDOMEN: Soft, nontender, and nondistended. NABS EXTREMITIES: Without any cyanosis, clubbing, rash, lesions or edema. NEUROLOGIC: Cranial nerves II through XII are grossly intact. Non lateralizing and non focal SKIN: No ulceration or induration present. 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 Lungs clear/diminished Continue home medications (4) GERD (gastroesophageal reflux disease) Current Visit: Yes Status: Chronic Assessment and Plan: continue PPI (5) S/P placement of cardiac pacemaker Current Visit: Yes Status: Acute Assessment and Plan: Chronic, history of A. fib normal functioning pacemaker per device check (6) Chest pain Current Visit: Yes Status: Resolved Assessment and Plan: pleuritic appearing chest pain; occurs with respiration dx of PNA Denies any chest pain or dyspnea at this time cardio consulted; no rec for further ischemic w/u (7) Pre-syncope Current Visit: Yes Status: Acute Assessment and Plan: States 2 episodes of pre-syncope in a 2-month period He denies any LOC or H/A and denies any loss of visual cheney. These events are self limiting and transient resulting in approximately 30 second intervals of darkening of vision Etiology unclear at this time CT head negative orthostatic vital signs reveal orthostasis known h/o proximal rt ICA stenosis at 60-79%; however, I doubt this to be contributing to his visual disturbances and his exam is non lateralizing and non focal Neurology seeing in consultation; recommendation appreciated; rec for MRI brain to t/u occipital lobe infarction Events including near syncope and vision changes are likely not cardiac in origin pacermaker device check is negative for arrhythmic events TTE shows no wall motion abnormalities or valvular dysfunction, preserved EF. EKG is without ischemic changes. Plan: MRI to evaluate for occipital lobe infarct D/W cardiology regarding pacer recalibration for MRI of brain cardiology does not feel ischemic w/u is warranted at this time and have signed off consider tilt table test outpatient if symptoms persist (8) Pneumonia Current Visit: Yes Status: Acute Assessment and Plan: Acute Chest x-ray is positive for a small bibasilar infiltrate there was concern for HCAP with hospitalization within the last 90 days empiric broad spectrum antibiotic coverage started on admission Apply oxygen at 2 L per nasal cannula if needed 02/21--He is having persistent dyspnea with exertion in the setting of PNA otherwise he is resting comfortably on room air. Continue with Levaquin. He informed me this morning that he has been having increase dyspnea with exertion for many months prior to this admission. He does have ground glass nodules in the LLL and scattered nodules in LLL on 12/2016 imaging. He is also reporting recent night sweats. Given his hx and recent PNA admission I will order CT chest for further evaluation of pulmonary nodules. - Time Spent with Patient Total time spent is greater than 50% in coordination of care (as documented) at patient's floor/unit and/or counseling patient: less than 15 minutes Plan of Care Discussed with: patient Internal Medicine: Result - Labs CBC & Chem 7: 02/19/18 02:59 02/20/18 11:27 Labs: BMP 02/20/18 11:27 Creatinine 1.11 - ABG Interpretation ABG results: PT/INR, D-dimer PT 12.2 Seconds (9.4-12.1) H 02/18/18 00:39 Consult Discharge Plan - Plan Referrals: Markell Daniel MD [Primary Care Provider] - 02/28/18 10:30 am ___ (1) HTN (hypertension) Qualifiers: Hypertension type: essential hypertension (2) HLD (hyperlipidemia) Qualifiers: (3) COPD (chronic obstructive pulmonary disease) Qualifiers: (4) GERD (gastroesophageal reflux disease) Qualifiers: (6) Chest pain Qualifiers: Chest pain type: chest pain on breathing Qualified Code(s): R07.1 - Chest pain on breathing; R07.81 - Pleurodynia (8) Pneumonia Qualifiers: Pneumonia type: due to unspecified organism Laterality: bilateral Lung location: lower lobe of lung Qualified Code(s): J18.1 - Lobar pneumonia, unspecified organism
[2018-02-21] MEDS: Aspirin Enteric Coated 81 MG Tablet PO SCH (09:11)
[2018-02-21] MEDS: Apixaban 5 MG TABLET PO SCH (09:11)
[2018-02-21] MEDS: *HR* HYDROcodone/Acet 5/325 mg TABLET PO PRN (09:11)
[2018-02-21] MEDS: amLODIPine 5 MG TABLET PO SCH (09:11)
[2018-02-21 10:47] VITALS: BP 132/79
--- NOTE | 2018-02-21 14:01 | Discharge Summary ---
- NOTES TO OUTPATIENT PROVIDER Notes to Outpatient Provider: needs f/u MRI for evaluation of transient vision changes; MRI recommended by neurology. MRI set-up need approval by charity fundraiser Dr. Thiago Oconnor d/t pacemeker. MRI ordered; d/w with MRI department who states that they will set-up cardiology and [employer] for calibration prior to admin,. Please ensure f/u with neurology; web request appointment made Date of Encounter: 02/21/18 Time of Encounter: 13:56 - Discharge Diagnosis (1) HTN (hypertension) Priority: Secondary Status: Chronic Qualifiers: Hypertension type: essential hypertension Qualified Code(s): I10 - Essential (primary) hypertension (2) HLD (hyperlipidemia) Priority: Secondary Status: Chronic Qualifiers: Hyperlipidemia type: unspecified Qualified Code(s): E78.5 - Hyperlipidemia, unspecified (3) COPD (chronic obstructive pulmonary disease) Priority: Secondary Status: Chronic Qualifiers: COPD type: unspecified COPD Qualified Code(s): J44.9 - Chronic obstructive pulmonary disease, unspecified (4) GERD (gastroesophageal reflux disease) Priority: Secondary Status: Chronic Qualifiers: Esophagitis presence: without esophagitis Qualified Code(s): K21.9 - Gastro-esophageal reflux disease without esophagitis (5) S/P placement of cardiac pacemaker Priority: Secondary Status: Acute (6) Chest pain Priority: Primary Status: Resolved Qualifiers: Chest pain type: chest pain on breathing Qualified Code(s): R07.1 - Chest pain on breathing; R07.81 - Pleurodynia (7) Pre-syncope Priority: Primary Status: Resolved (8) Pneumonia Priority: Primary Status: Acute Qualifiers: Pneumonia type: due to unspecified organism Laterality: bilateral Lung location: lower lobe of lung Qualified Code(s): J18.1 - Lobar pneumonia, unspecified organism Hospital course: Mr. Rueda is a 82 year old male who presented with near syncope (no LOC), lightheadedness and vision changes. Syncope workup completed finding no cardiac cause with normal TTE, negative troponins and EKG without ischemic changes. CT head was negative for acute intracranial abnormality. Neurology consulted and does not feel that vision changes are not of central neurological etiology. MRI brain ordered to r/o subtle occipital lobe infarction. However, unable to complete MRI d/t pacemaker; patient needs Dr. Thiago Oconnor to recalibrate pacer prior to MRI. Dr. Oconnor unavailable to assist with pacer recalibration for MRI. This will not likely change treatment plan so the patient was discharged on eliquis, statin, ASA and instructed to f/u with PCP in 1-week and neurology in 2 weeks. He has been given an order for outpatient MRI; I discussed with MRI staff and they reported that as long as the order is in they are aware of the need to have Dr. Oconnor available to assist with recalibration. He has had no return of vision changes or near syncope during stay and was able to change position and ambulate throughout room and unit on day of d/c. Discharge discussed with: patient, nurse - Time Spent with Patient Total time spent providing and/or coordinating discharge services: Less than 30 minutes - Discharge Medications Prescriptions: Apixaban [Eliquis] 5 mg PO BID 30 Days #60 tablet levoFLOXacin [Levaquin] 750 mg PO DAILY 5 Days #5 tablet Metoprolol [Lopressor] 25 mg PO BID 30 Days #60 tablet Home Medications: Budesonide/Formoterol 160/4.5 [Symbicort 160/4.5] 1 puff IN DAILY 09/11/15 [History] Omeprazole [PriLOSEC] 20 mg PO HS 09/11/15 [History] Atorvastatin Calcium [Lipitor] 80 mg PO HS 07/28/17 [History] Folic Acid 1 mg PO DAILY 07/28/17 [History] Alendronate Sodium [Fosamax] 70 mg PO ASHRAF 09/21/17 [History] Aspirin [Lo-Dose Aspirin EC] 81 mg PO DAILY 09/21/17 [History] amLODIPine [Norvasc] 5 mg PO DAILY #30 tablet 09/22/17 [Rx] Fluticasone Propionate [Flonase Allergy Relief] 1 spray NS DAILY 11/22/17 [History] Vitamin E 1,000 unit PO HS 11/22/17 [History] Naproxen [Naprosyn] 500 mg PO BID PRN 02/17/18 [History] Apixaban [Eliquis] 5 mg PO BID 30 Days #60 tablet 02/21/18 [Rx] Metoprolol [Lopressor] 25 mg PO BID 30 Days #60 tablet 02/21/18 [Rx] levoFLOXacin [Levaquin] 750 mg PO DAILY 5 Days #5 tablet 02/21/18 [Rx] Allergies/Adverse Reactions: Allergy/AdvReac Type Severity Reaction Status Date / Time [facility] Allergy See Verified 02/17/18 22:00 Comments Date of admission: 02/17/18 21:11 Primary care physician: Markell Daniel MD Consults: 02/19/18 11:58 Consult to Cardiology [CONS] Routine Comment: Consulting Provider: [facility] Reason for Consult: HTN, pacer, dizzness, 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 Call Completed: No 02/19/18 11:59 Consult to Neurology [CONS] Routine Consulting Provider: [facility] Reason for Consult: dizziness, blurred vision , passing out Call Completed: No Discharging clinician: Wernre Flynn Anticipated date of discharge: 02/21/18 - Constitutional Vitals: Temp Pulse Resp BP Pulse Ox 98.3 F 82 18 132/79 90 02/21/18 10:45 02/21/18 10:45 02/21/18 10:45 02/21/18 10:45 02/21/18 10:45 General appearance: Present: A&O X 3 Exam: PHYSICAL EXAMINATION: GENERAL: The patient is an elderly male, A&OX3, NAD HEENT: Head is normocephalic and atraumatic. EOMI without nystagmus, PERRLA NECK: Supple. No carotid bruits. No lymphadenopathy or thyromegaly. LUNGS: Clear to auscultation B/L AP and L. HEART: Regular rate and rhythm, S1, S2 without murmurs, rubs or gallops. ABDOMEN: Soft, nontender, and nondistended. NABS EXTREMITIES: Without any cyanosis, clubbing, rash, lesions or edema. NEUROLOGIC: Cranial nerves II through XII are grossly intact. Non lateralizing and non focal SKIN: No ulceration or induration present. - Patient Status Disposition: Home, Self-Care Condition: Good Functional capacity at discharge: independent ambulation Overall status at discharge: patient is back to baseline - Ambulatory Orders Ambulatory Orders: MR head/brain wo con [MR] Time Frame: 7 Days, Facility: [facility], Location: MRI - Discharge Instructions Instructions: Chest Pain (DC), Chronic Hypertension (DC), Pneumonia (DC) Follow Up With: Riaz Neal DO [Partnered Physician] - (Appointment has been requested. Our offices will contact you with a time and date.) Markell Daniel MD [Primary Care Provider] - 02/28/18 10:30 am - Diet and Activity Activity: increase activity as tolerated, resume usual activities as tolerated Diet: diabetic diet, low fat, low cholesterol, low salt diet
[2018-02-21] MEDS ORDERED: Aminoglycoside Consult 1 EACH MC ONE (15:12)
== END 2018-02-21 15:13 | disposition home or self-care (01) ==
LOC: 3BNU
PROVIDERS: ADMIT Hospitalist; ATTEND Hospitalist

== ENCOUNTER 2018-03-28 14:43 | Observation (INO) ==
[2018-03-28] MEDS ORDERED: Naloxone 0.4 MG/ML INJ IVP PRN (20:09)
[2018-03-28] MEDS: Budesonide/Formoterol 160/4.5 1 PUFF INH IH SCH (20:52)
[2018-03-28] MEDS: Apixaban 5 MG TABLET PO SCH (21:59)
--- NOTE | 2018-03-29 00:18 | Internal Med History&Physical ---
Date of Encounter: 03/28/18 Time of Encounter: 19:00 Internal Medicine - H&P: HPI Chief complaint: CHEST PAIN/DIFFICULTY BREATHING Admitted From: Home Plans for Post Hospital Care: Home History of present illness: The patient is an 82-year-old male. It was in January 2018 when he was hospitalized here for treatment of pneumonia; discovered to have atrial fibrillation at that time. He was sent home on Eliquis, Lopressor and Norvasc. Lopressor and Norvasc were changed to Cardizem CD at 120 mg daily by a wanigan clerk at the time of the follow-up visit. Shortly after the patient started developing progressing dyspnea on exertion; associated with mild/moderate pain located in upper portion of his anterior chest. Eventually those symptoms became at resting. He could not sleep last night; was very short of breath today morning. With mild chest pain (as mentioned above). The patient has not had any fever or chills recently. Denies abdominal pain, nausea and vomiting. He has normal urination. The patient was found to have atrial fibrillation with ventricular rate of 129 in our ED. He was put on IV Cardizem drip. He felt good today evening, when I examined him. PAST MEDICAL HX: He has had atrial fibrillation. His other medical problems include COPD, hypertension, hyperlipidemia and GERD. He got two treatments for his bladder cancer in the past. 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 PAST FAMILY HX: Positive for hypertension. PAST SOCIAL HX: Is a former smoker. He denies alcohol and illicit drugs use. REVIEW OF SYSTEMS: All 14 organ systems were reviewed by me with the patient. Positive and pertinent negative findings are listed above. The rest of organ systems is negative. PHYSICAL EXAM: Skin: Free of rash and discoloration. Eyes: Sclera is white. There is no discharge from eyes. ENMT: Oral/pharyngeal mucosa is normal in appearance. There is no discharge from nose or ears. Respiratory: Normal breath sounds with no crackles and wheezes bilaterally. CV: His heart is irregularly irregular. I cannot hear any murmur. GI: Abdomen is flat and soft with no palpable mass or visceromegaly. : There is no tenderness in patient's flanks bilaterally. Neuro exam: He has good strength in upper and lower extremities. He has normal eye movements. Psychiatric: He has normal affect. His thought process is appropriate to the situation. ADDITIONAL DATA: Chest x-ray shows small bilateral pleural effusions; left side greater than right side. With associated bibasilar atelectasis. Echocardiogram from January 2018 showed ejection fraction of 60-65%. It showed mild left ventricular diastolic dysfunction. His last TSH was checked in September 2017 it was normal. Pro time INR is 2.3; secondary to use of Eliquis. CBC shows hemoglobin of 10.5 with normal WBC/platelet count. Electrolytes are showing potassium of 3.4. Otherwise, they are normal. Creatinine 0.95. Calcium is 9.5. Troponin is below 0.03. A/P: Atrial fibrillation with rapid ventricular rate. Currently under control. His IV Cardizem drip is at 10 mg/h at this time. I will check his second troponin now. He will have another one tomorrow morning. The patient will need stress test, when medically stable. It was supposed to be done last weekthe patient was not able to do it. We will continue Eliquis. COPD. Mild. To continue when necessary albuterol inhalations. Hypertension. Under control. Currently on IV Cardizem drip. Hyperlipidemia. Continue Crestor. GERD. He is on omeprazole. Past Med Surg Social Fam HX - Past Medical History Medical history: cancer, COPD, CVA, GERD, hyperlipidemia, hypertension, other Additional medical history: bladder ca. HYPERPARATHYROID Psychiatric history: no psych history - Past Surgical History Surgical History: other, pacemaker Additional surgical history: back sx 2006, bladder Sx. TURP. CARPAL TUNNEL - Social History Smoking Status: Former smoker Smokeless Tobacco Status: No Alcohol use: none Drug use: none - Family History Mother Living Status: Internal Medicine - H&P: Meds Budesonide/Formoterol 160/4.5 [Symbicort 160/4.5] 2 puff IH BID 09/11/15 [History] Omeprazole [PriLOSEC] 20 mg PO DAILY@0730 09/11/15 [History] Atorvastatin Calcium [Lipitor] 80 mg PO HS 07/28/17 [History] Folic Acid 1 mg PO DAILY 07/28/17 [History] Alendronate Sodium [Fosamax] 70 mg PO ASHRAF 09/21/17 [History] Aspirin [Lo-Dose Aspirin EC] 81 mg PO DAILY 09/21/17 [History] amLODIPine [Norvasc] 5 mg PO DAILY #30 tablet 09/22/17 [Rx] Fluticasone Propionate [Flonase Allergy Relief] 1 spray NS DAILY 11/22/17 [History] Apixaban [Eliquis] 5 mg PO BID 30 Days #60 tablet 02/21/18 [Rx] Acetaminophen [Tylenol] 500 - 1,000 mg PO Q6HR PRN 03/28/18 [History] Albuterol Sulfate [Albuterol Inhaler] 2 puff IH Q6H PRN 03/28/18 [History] Metoprolol [Lopressor] 25 mg PO BID 03/28/18 [History] Mv-Min/FA/Vit K/Lycop/Lut/Zeax [Ocuvite Eye + Multi Tablet] 1 each PO DAILY 03/28/18 [History] Allergy/AdvReac Type Severity Reaction Status Date / Time cetirizine [From Zyrtec] Allergy See Verified 03/28/18 13:08 Comments All Systems PM: A 10-system review of systems was performed and is negative for pertinent findings except as documented above in the HPI. - Constitutional Vitals: Temp Pulse Resp BP Pulse Ox 98.4 F 94 17 102/60 90 03/28/18 23:55 03/28/18 23:55 03/28/18 23:55 03/28/18 23:55 03/28/18 23:55 Exam: xx Internal Med - H&P Results - Labs Labs: Cardiac Enzymes 03/28/18 Range/Units 20:48 Troponin I < 0.03 (< 0.04) ng/mL - Assessment and plan (1) Atrial fibrillation with RVR Current Visit: Yes Status: Acute (2) Chest pain Current Visit: No Status: Acute Qualifiers: Chest pain type: other chest pain Qualified Code(s): R07.89 - Other chest pain; R07.8 - Other chest pain (3) COPD (chronic obstructive pulmonary disease) Current Visit: Yes Status: Chronic Qualifiers: COPD type: unspecified COPD Qualified Code(s): J44.9 - Chronic obstructive pulmonary disease, unspecified (4) HTN (hypertension) Current Visit: Yes Status: Chronic Qualifiers: Hypertension type: essential hypertension Qualified Code(s): I10 - Essential (primary) hypertension (5) HLD (hyperlipidemia) Current Visit: Yes Status: Chronic Qualifiers: Hyperlipidemia type: unspecified Qualified Code(s): E78.5 - Hyperlipidemia, unspecified (6) GERD (gastroesophageal reflux disease) Current Visit: Yes Status: Chronic Qualifiers: Esophagitis presence: esophagitis presence not specified Qualified Code(s): K21.9 - Gastro-esophageal reflux disease without esophagitis - Time Spent With Patient Total time spent is greater than 50% in coordination of care (as documented) at patient's floor/unit and/or counseling patient: 25 - 35 minutes
[2018-03-29 06:21] LABS: Basophils % 0.3 %; Eosinophils % 0.5 %; Hematocrit 30.9 % (37.5-50.1); Hemoglobin 10.1 g/dL (12.9-16.9); Immature Granulocytes % 0.6 % (0-4); Lymphocytes # 0.6 K/mcL (0.6-4.6); Lymphocytes % 7.3 %; Mean Corpuscular HGB Conc 32.7 g/dL (31.6-35.5); Mean Corpuscular Hemoglobin 27.5 pg (28.0-33.3); Mean Corpuscular Volume 84.2 fL (83.0-100.0); Mean Platelet Volume 9.4 fL (9.4-12.4); Monocytes % 11.5 %; Neutrophils # 7.1 K/mcL (1.6-8.9); Platelet Count 319 K/mcL (140-400); Red Blood Count 3.67 M/mcL (4.19-5.50); Red Cell Distribution Width 14.5 % (11.5-14.5); Segmented Neutrophils % 79.8 %
[2018-03-29 06:37] LABS: Troponin I < 0.03 ng/mL (< 0.04)
[2018-03-29 06:39] LABS: Alanine Aminotransferase 98 Units/L (7-52); Albumin 2.8 g/dL (3.5-5.7); Albumin/Globulin Ratio 0.9 (1.1-2.2); Alkaline Phosphatase 71 Units/L (34-104); Aspartate Amino Transferase 62 Units/L (13-39); BUN/Creatinine Ratio 15 (6-26); Bilirubin,Direct 0.4 mg/dL (0.0-0.2); Bilirubin,Indirect 0.9 mg/dL (0.0-1.2); Bilirubin,Total 1.3 mg/dL (0.3-1.0); Blood Urea Nitrogen 13 mg/dL (8-23); Calcium 9.4 mg/dL (8.6-10.3); Carbon Dioxide 26 mEq/L (23-29); Chloride 100 mEq/L (98-107); Glucose 142 mg/dL (70-105); Osmolality,Calculated 281 (280-300); Potassium 3.4 mEq/L (3.5-5.1); Sodium 134 mEq/L (136-145); Total Protein 5.8 g/dL (6.4-8.9); eGFR For Non-African Americans > 60 (> 60)
[2018-03-29] MEDS: Aspirin Enteric Coated 81 MG Tablet PO SCH (07:30)
[2018-03-29] MEDS: Folic Acid 1 MG TABLET PO SCH (07:30)
[2018-03-29] MEDS: Apixaban 5 MG TABLET PO SCH ×2 (07:30→20:13)
[2018-03-29] MEDS: Fluticasone Propionate Nasal 50 MCG/SPRAY BOTTLE NS SCH (09:53)
[2018-03-29] MEDS: Budesonide/Formoterol 160/4.5 1 PUFF INH IH SCH ×2 (10:01→19:56)
[2018-03-29] MEDS: Diltiazem CD (24hr) 240 MG CAPSULE PO SCH (13:34)
--- NOTE | 2018-03-29 23:54 | Electrocardiograph Report ---
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
--- NOTE | 2018-03-30 02:36 | Internal Med Progress Note ---
Hospitalist Progress Note - Encounter Date of Encounter: 03/29/18 Time of Encounter: 19:00 - Subjective Interval History: SUBJECTIVE: The patient feels good. He has not had any chest pain since admitting him to the hospital floor. Denies any dyspnea, coughing and wheezing. Denies abdominal pain, nausea and vomiting. He has normal urination. OBJECTIVE: Skin: Free of rash and discoloration. ENMT: Oral/pharyngeal mucosa is normal in appearance. Eyes: Sclera is white. There is no discharge from eyes. Respiratory: Normal breath sounds; no crackles or wheezes. CV: Heart is irregularly irregular with no audible murmur. GI: Abdomen is soft and not tender. There is no palpable mass or visceromegaly. Neuro: There is no focal deficits. ADDITIONAL DATA: CBC shows hemoglobin of 10.1 with normal WBC/platelet count. Potassium is 3.4. The rest of electrolytes is normal. Creatinine is 0.86. Fasting glucose by BMP is 142. His troponin is normal on 2 occasions. EKG shows atrial fibrillation. ASSESSMENT AND PLAN: Atrial fibrillation with rapid ventricular rate. Better after putting him on IV Cardizem drip. Currently at 10 mg/h. His heart rate is about 105. xxx. I will switch him to oral Cardizem CD. To continue Eliquis. I will consult cardiology. Chest pain. Subsided after getting his heart rate under better control. Negative for troponins. The patient needs stress test. It was supposed to happen this week. COPD. Under control. He is good on room air. He will get when necessary nebulizer treatments with albuterol. Hypertension. Cardizem CD 240 mg daily will very likely control at that problem. Hyperlipidemia. He is on Lipitor. - Exam Vitals: Temp Pulse Resp BP Pulse Ox 99.1 F 100 15 117/69 90 03/30/18 00:08 03/30/18 00:08 03/30/18 00:08 03/30/18 00:08 03/30/18 00:08 Exam: xx - Assessment and Plan (1) Atrial fibrillation with RVR Current Visit: Yes Status: Acute (2) Chest pain Current Visit: No Status: Acute (3) COPD (chronic obstructive pulmonary disease) Current Visit: Yes Status: Chronic (4) HTN (hypertension) Current Visit: Yes Status: Chronic (5) HLD (hyperlipidemia) Current Visit: Yes Status: Chronic (6) GERD (gastroesophageal reflux disease) Current Visit: Yes Status: Chronic - Time Spent with Patient Total time spent is greater than 50% in coordination of care (as documented) at patient's floor/unit and/or counseling patient: 25 - 35 minutes Plan of Care Discussed with: patient Internal Medicine: Result - Labs CBC & Chem 7: 03/29/18 05:18 03/29/18 05:18 Labs: Short CBC 03/29/18 Range/Units 05:18 WBC 8.8 (4.3-11.1) K/mcL Hgb 10.1 L (12.9-16.9) g/dL Hct 30.9 L (37.5-50.1) % Plt Count 319 (140-400) K/mcL Neutrophils # 7.1 (1.6-8.9) K/mcL BMP 03/29/18 05:18 Sodium 134 L Potassium 3.4 L Chloride 100 Carbon Dioxide 26 BUN 13 Creatinine 0.86 Glucose 142 H Calcium 9.4 Cardiac Enzymes 03/29/18 Range/Units 05:18 Troponin I < 0.03 (< 0.04) ng/mL Liver Function 03/29/18 Range/Units 05:18 Total Bilirubin 1.3 H (0.3-1.0) mg/dL Direct Bilirubin 0.4 H (0.0-0.2) mg/dL AST 62 H (13-39) Units/L ALT 98 H (7-52) Units/L Alkaline Phosphatase 71 (34-104) Units/L Albumin 2.8 L (3.5-5.7) g/dL Consult Discharge Plan - Plan Referrals: NONE,PCP [Primary Care Provider] - (2) Chest pain Qualifiers: Chest pain type: other chest pain Qualified Code(s): R07.89 - Other chest p ain; R07.8 - Other chest pain (3) COPD (chronic obstructive pulmonary disease) Qualifiers: COPD type: unspecified COPD Qualified Code(s): J44.9 - Chronic obstructive pulmonary disease, unspecified (4) HTN (hypertension) Qualifiers: Hypertension type: essential hypertension Qualified Code(s): I10 - Essential (primary) hypertension (5) HLD (hyperlipidemia) Qualifiers: Hyperlipidemia type: unspecified Qualified Code(s): E78.5 - Hyperlipidemia, unspecified (6) GERD (gastroesophageal reflux disease) Qualifiers: Esophagitis presence: esophagitis presence not specified Qualified Code(s): K21.9 - Gastro-esophageal reflux disease without esophagitis
[2018-03-30] MEDS: Apixaban 5 MG TABLET PO SCH ×2 (07:33→19:32)
[2018-03-30] MEDS: Folic Acid 1 MG TABLET PO SCH (07:33)
[2018-03-30] MEDS: Aspirin Enteric Coated 81 MG Tablet PO SCH (07:33)
[2018-03-30] MEDS: Diltiazem CD (24hr) 240 MG CAPSULE PO SCH (07:33)
[2018-03-30] MEDS: Budesonide/Formoterol 160/4.5 1 PUFF INH IH SCH ×2 (08:00→20:05)
[2018-03-30] MEDS: Fluticasone Propionate Nasal 50 MCG/SPRAY BOTTLE NS SCH (12:01)
[2018-03-30] MEDS: traMADol 50 MG TABLET PO PRN ×2 (15:05→23:37)
--- NOTE | 2018-03-30 15:44 | Internal Med Progress Note ---
Hospitalist Progress Note - Encounter Date of Encounter: 03/30/18 Time of Encounter: 10:25 - Subjective Interval History: Patient sitting up in chair. Complains of chest pain located centrally. Feels like a pressure. He reports that the pain has been going on for more than a month now. It had improved when he was on IV Cardizem drip but restarted after the Cardizem drip was stopped. Patient has been set up for outpatient stress test. He denies any cough or shortness of breath. No palpitations. - Exam Vitals: Temp Pulse Resp BP Pulse Ox 99.6 F 83 18 154/78 92 03/30/18 15:14 03/30/18 15:14 03/30/18 15:14 03/30/18 15:14 03/30/18 15:14 Exam: General: Patient is alert, no acute distress, oriented x 3 ENT: Mucous membranes moist Respiratory: Prolonged expiratory phase. Mild wheezing Cardiovascular: Regular rate and rhythm. s1 and s2 normal No clicks, rubs, gallops, or murmurs. No pedal edema Abdomen: Abdomen is soft, nontender. Bowel sounds are present Musculoskeletal: Spontaneously moving all extremities Skin: warm, dry, intact. Neuro: Alert oriented x 3 normal cranial nerves, no focal deficits - Assessment and Plan (1) Atrial fibrillation with RVR Current Visit: Yes Status: Acute Assessment and Plan: Rate controlled. Continue Cardizem (2) Chest pain Current Visit: Yes Status: Acute Assessment and Plan: Patient reporting continued chest pain. Initially this was believed to be due to his A. fib. However his heart rate has been controlled and patient is now on oral Cardizem. Continues to have chest pain. Troponins have been negative. Will set up for cardiac stress test tomorrow. Consult cardiology stress test is positive. (3) HTN (hypertension) Current Visit: Yes Status: Chronic Assessment and Plan: Blood pressure was well controlled this morning. We will continue to monitor and adjust antihypertensive regimen accordingly. (4) HLD (hyperlipidemia) Current Visit: Yes Status: Chronic Assessment and Plan: Continue Lipitor (5) COPD (chronic obstructive pulmonary disease) Current Visit: Yes Status: Chronic Assessment and Plan: Continue albuterol inhaler. Not in acute exacerbation (6) GERD (gastroesophageal reflux disease) Current Visit: Yes Status: Chronic Assessment and Plan: Continue Prilosec - Time Spent with Patient Total time spent is greater than 50% in coordination of care (as documented) at patient's floor/unit and/or counseling patient: Internal Medicine: Result - Labs CBC & Chem 7: 03/29/18 05:18 03/29/18 05:18 Consult Discharge Plan - Plan Referrals: NONE,PCP [Primary Care Provider] - (2) Chest pain Qualifiers: Chest pain type: other chest pain Qualified Code(s): R07.89 - Other chest pain; R07.8 - Other chest pain (3) HTN (hypertension) Qualifiers: Hypertension type: essential hypertension Qualified Code(s): I10 - Essential (primary) hypertension (4) HLD (hyperlipidemia) Qualifiers: Hyperlipidemia type: unspecified Qualified Code(s): E78.5 - Hyperlipidemia, unspecified (5) COPD (chronic obstructive pulmonary disease) Qualifiers: COPD type: unspecified COPD Qualified Code(s): J44.9 - Chronic obstructive pulmonary disease, unspecified (6) GERD (gastroesophageal reflux disease) Qualifiers: Esophagitis presence: esophagitis presence not specified Qualified Code(s): K21.9 - Gastro-esophageal reflux disease without esophagitis
[2018-03-31] MEDS ORDERED: Regadenoson 0.4 MG/5 ML SYRINGE IVP ONE (06:00)
[2018-03-31] MEDS: traMADol 50 MG TABLET PO PRN ×2 (06:49→15:26)
[2018-03-31] MEDS: Diltiazem CD (24hr) 240 MG CAPSULE PO SCH (07:43)
[2018-03-31] MEDS: Budesonide/Formoterol 160/4.5 1 PUFF INH IH SCH (11:39)
[2018-03-31 12:39] VITALS: BP 129/78
[2018-03-31] MEDS: Folic Acid 1 MG TABLET PO SCH (12:57)
[2018-03-31] MEDS: Aspirin Enteric Coated 81 MG Tablet PO SCH (12:57)
[2018-03-31] MEDS: Apixaban 5 MG TABLET PO SCH (12:57)
[2018-03-31] MEDS: Fluticasone Propionate Nasal 50 MCG/SPRAY BOTTLE NS SCH (12:58)
--- NOTE | 2018-03-31 14:48 | Discharge Summary ---
- NOTES TO OUTPATIENT PROVIDER Notes to Outpatient Provider: Patient with a history of atrial fibrillation, COPD, hypertension seen in the ER initially shortness of breath with exertion and chest pain. He was found to be in rapid A. fib. He was started on intravenous Cardizem and then transition to oral Cardizem. His heart rate has been well controlled. He continued to describe chest pain and as such after his troponins were checked and found to be negative, patient underwent cardiac stress test today. Stress test was negative for ischemia. He continues to have mild chest discomfort. Could be related to atrial fibrillation or noncardiac causes. At this time I recommend follow-up with outpatient primary care provider for further management. He may take Tylenol and other pain relieving medications in the interim. May need GI workup if his symptoms not improved. Patient is already on Prilosec. Patient will be discharged today and will follow up with his primary care provider in one week. Orders not resulted at time of discharge: Pending orders 03/31/18 07:00 NM jose daniel perf SPECT multi [NM] Routine Date of Encounter: 03/31/18 Time of Encounter: 14:45 - Discharge Diagnosis (1) Atrial fibrillation with RVR Priority: Primary Status: Acute (2) Chest pain Priority: Secondary Status: Acute Qualifiers: Chest pain type: other chest pain Qualified Code(s): R07.89 - Other chest pain; R07.8 - Other chest pain (3) HTN (hypertension) Priority: Secondary Status: Chronic Qualifiers: Hypertension type: essential hypertension Qualified Code(s): I10 - Essential (primary) hypertension (4) HLD (hyperlipidemia) Priority: Secondary Status: Chronic Qualifiers: Hyperlipidemia type: unspecified Qualified Code(s): E78.5 - Hyperlipidemia, unspecified (5) COPD (chronic obstructive pulmonary disease) Priority: Secondary Status: Chronic Qualifiers: COPD type: unspecified COPD Qualified Code(s): J44.9 - Chronic obstructive pulmonary disease, unspecified (6) GERD (gastroesophageal reflux disease) Priority: Secondary Status: Chronic Qualifiers: Esophagitis presence: esophagitis presence not specified Qualified Code(s): K21.9 - Gastro-esophageal reflux disease without esophagitis Hospital course: Mr. Rueda is a 82 year old male Patient with a history of atrial fibrillation, COPD, hypertension seen in the ER initially shortness of breath with exertion and chest pain. He was found to be in rapid A. fib. He was started on intravenous Cardizem and then transition to oral Cardizem. His heart rate has been well controlled. He continued to describe chest pain and as such after his troponins were checked and found to be negative, patient underwent cardiac stress test today. Stress test was negative for ischemia. He continues to have mild chest discomfort. Could be related to atrial fibrillation or noncardiac causes. At this time I recommend follow-up with outpatient primary care provider for further management. He may take Tylenol and other pain relieving medications in the interim. May need GI workup if his symptoms not improved. Patient is already on Prilosec. Patient will be discharged today and will follow up with his primary care provider in one week. Discharge discussed with: patient, family, nurse - Time Spent with Patient Total time spent providing and/or coordinating discharge services: Less than 30 minutes (25 min) - Discharge Medications Prescriptions: Diltiazem CD (24hr) [Cardizem CD] 240 mg PO DAILY #30 cap.er.24h Tramadol HCl [Ultram] 50 mg PO QID PRN 6 Days #20 tab PRN Reason: Moderate Pain Home Medications: Budesonide/Formoterol 160/4.5 [Symbicort 160/4.5] 2 puff IH BID 09/11/15 [History] Omeprazole [PriLOSEC] 20 mg PO DAILY@0730 09/11/15 [History] Atorvastatin Calcium [Lipitor] 80 mg PO HS 07/28/17 [History] Folic Acid 1 mg PO DAILY 07/28/17 [History] Alendronate Sodium [Fosamax] 70 mg PO ASHRAF 09/21/17 [History] Aspirin [Lo-Dose Aspirin EC] 81 mg PO DAILY 09/21/17 [History] amLODIPine [Norvasc] 5 mg PO DAILY #30 tablet 09/22/17 [Rx] Fluticasone Propionate [Flonase Allergy Relief] 1 spray NS DAILY 11/22/17 [History] Apixaban [Eliquis] 5 mg PO BID 30 Days #60 tablet 02/21/18 [Rx] Acetaminophen [Tylenol] 500 - 1,000 mg PO Q6HR PRN 03/28/18 [History] Albuterol Sulfate [Albuterol Inhaler] 2 puff IH Q6H PRN 03/28/18 [History] Mv-Min/FA/Vit K/Lycop/Lut/Zeax [Ocuvite Eye Plus Multi Tablet] 1 each PO DAILY 03/28/18 [History] Diltiazem CD (24hr) [Cardizem CD] 240 mg PO DAILY #30 cap.er.24h 03/31/18 [Rx] Tramadol HCl [Ultram] 50 mg PO QID PRN 6 Days #20 tab 03/31/18 [Rx] Allergies/Adverse Reactions: Allergy/AdvReac Type Severity Reaction Status Date / Time cetirizine [From [facility]] Allergy See Verified 03/28/18 13:08 Comments Date of admission: 03/28/18 16:32 Primary care physician: PCP NONE Discharging clinician: Ramiro Sinha Anticipated date of discharge: 03/31/18 - Constitutional Vitals: Temp Pulse Resp BP Pulse Ox 98.7 F 92 17 129/78 94 03/31/18 12:37 03/31/18 12:37 03/31/18 12:37 03/31/18 12:37 03/31/18 12:37 General appearance: Present: cooperative, A&O X 3, pleasant, no acute distress, answers questions appropriately Exam: . - Respiratory Respiratory exam: Present: CTAB. Absent: accessory muscle use, rales, rhonchi, wheezes - Cardiovascular Cardiovascular exam: Present: RRR, +S1, +S2. Absent: diastolic murmur, gallop, rubs, systolic murmur - GI/Abdominal GI/Abdominal exam: Present: normal bowel sounds, soft, no peritoneal signs. Absent: distended, tenderness - Patient Status Disposition: Home, Self-Care Condition: Good Functional capacity at discharge: independent ambulation Overall status at discharge: patient is progressing back to baseline - Discharge Instructions Instructions: Chronic Hypertension (DC) Follow Up With: NONE,PCP [Primary Care Provider] - (in 1-2 weeks) - Diet and Activity Activity: increase activity as tolerated Diet: low fat, low cholesterol, low salt diet
== END 2018-03-31 15:50 | disposition home or self-care (01) ==
LOC: 2ANU → SUATTDRO 20:09
PROVIDERS: ADMIT Student in an Organized Health Care Education/Training Program; ATTEND Internal Medicine

== ENCOUNTER 2021-08-31 18:42 | Observation (INO) ==
[2021-08-31] MEDS ORDERED: Naloxone 0.4 MG/ML INJ IVP PRN (21:06)
[2021-08-31] MEDS ORDERED: Melatonin 3 MG TABLET PO PRN (21:06)
[2021-08-31] MEDS ORDERED: Ondansetron 4 MG/2 ML VIAL IVP PRN (21:06)
[2021-09-01] MEDS: Acetaminophen 325 MG TABLET PO PRN ×3 (03:51→19:52)
[2021-09-01 05:29] LABS: Hematocrit 43.6 % (37.5-50.1); Hemoglobin 14.3 g/dL (12.9-16.9); Mean Corpuscular HGB Conc 32.8 g/dL (31.6-35.5); Mean Corpuscular Volume 91.6 fL (83.0-100.0); Mean Platelet Volume 9.5 fL (9.4-12.4); Platelet Count 207 K/mcL (140-400); Red Blood Count 4.76 M/mcL (4.19-5.50); Red Cell Distribution Width 14.5 % (11.5-14.5); White Blood Count 7.4 K/mcL (4.3-11.1)
[2021-09-01 05:37] LABS: INR 1.1; Prothrombin Time 12.7 Seconds (9.4-12.1)
[2021-09-01 05:50] LABS: Estimated Average Glucose 128 mg/dl; Hemoglobin A1C 6.1 %
[2021-09-01 05:51] LABS: Alanine Aminotransferase 15 Units/L (7-52); Albumin 3.3 g/dL (3.5-5.7); Albumin/Globulin Ratio 1.4 (1.1-2.2); Alkaline Phosphatase 43 Units/L (34-104); Aspartate Amino Transferase 20 Units/L (13-39); BUN/Creatinine Ratio 16 (6-26); Bilirubin,Total 1.1 mg/dL (0.3-1.0); Blood Urea Nitrogen 17 mg/dL (8-23); Calcium 9.5 mg/dL (8.6-10.3); Carbon Dioxide 24 mEq/L (23-29); Chloride 107 mEq/L (98-107); Chol/HDL Ratio 2.9 (0-4.9); Cholesterol 103 mg/dL (< 200); Globulin 2.3 g/dL (2.4-3.5); Glucose 83 mg/dL (70-105); HDL Cholesterol 36 mg/dL (40-59); LDL Cholesterol,Calculated 51 mg/dL (< 100); Osmolality,Calculated 283 (280-300); Potassium 4.1 mEq/L (3.5-5.1); Sodium 136 mEq/L (136-145); Total Protein 5.6 g/dL (6.4-8.9); Triglycerides 79 mg/dL (< 150); Troponin I 0.03 ng/mL (< 0.04); eGFR For African Americans > 60 (> 60); eGFR For Non-African Americans > 60 (> 60)
[2021-09-01] MEDS ORDERED: Gadolinium Contrast Agent (WT Based) IV PRN (12:57)
[2021-09-01] MEDS: Sacubitril/Valsartan 24/26 MG 1 TABLET PO SCH (19:52)
[2021-09-01] MEDS: Apixaban 5 MG TABLET PO SCH (19:52)
[2021-09-01] MEDS ORDERED: Metoprolol XL (24 HR) Succ 50 MG TAB.ER.24H PO SCH (21:00)
[2021-09-02 03:27] LABS: C-Reactive Protein 41 mg/L (Less than 10); Creatine Kinase 42 Units/L (30-223)
[2021-09-02] MEDS: Acetaminophen 325 MG TABLET PO PRN ×2 (04:11→10:54)
[2021-09-02] MEDS: Apixaban 5 MG TABLET PO SCH (08:23)
[2021-09-02] MEDS: Sacubitril/Valsartan 24/26 MG 1 TABLET PO SCH (08:24)
[2021-09-02] MEDS ORDERED: Folic Acid 1 MG TABLET PO SCH (09:00)
[2021-09-02] MEDS ORDERED: Metoprolol XL (24 HR) Succ 50 MG TAB.ER.24H PO SCH (09:00)
[2021-09-02] MEDS ORDERED: Aspirin Enteric Coated 81 MG Tablet PO SCH (09:00)
[2021-09-02] MEDS ORDERED: Spironolactone 12.5 MG TABLET PO SCH (09:00)
[2021-09-02 10:07] VITALS: BP 155/88; PULSE 99; TEMP 98.3; O2SAT 94
== END 2021-09-02 12:04 | disposition home or self-care (01) ==
LOC: 3BNU → SUATTDRO 20:27
PROVIDERS: ADMIT Student in an Organized Health Care Education/Training Program; ATTEND Registered Nurse